=== PATIENT | male | born 1985 | race Caucasian/White ===

== ENCOUNTER 2024-10-08 23:31 | Emergency (ER) | payer SELFPAY ==
[2024-10-08 23:32] VITALS: BP 143/84; PULSE 78; RESP 16; TEMP 36.4; O2SAT 97; BMI 22.5
--- NOTE | 2024-10-08 23:41 | ECG_ITS ---
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 Measurements Intervals [place] Rate: 73 P: 69 LA: 172 QRS: 77 QRSD: 90 T: 62 QT: 334 QTc: 368 Interpretive Statements SINUS RHYTHM No previous ECG available for comparison Electronically Signed On 10-09-2024 14:06:51 CDT by Martha Holland M.D. [email or web address]
--- NOTE | 2024-10-09 00:09 | XRR_ITS ---
PROCEDURE INFORMATION: Exam: XR Chest Exam date and time: 10/09/2024 12:27 AM Age: 39 years old Clinical indication: Pain; Right-sided; Additional info: Chest pain TECHNIQUE: Imaging protocol: Radiologic exam of the chest. Views: 1 view. COMPARISON: No relevant prior studies available. FINDINGS: Lungs: Lungs are clear bilaterally. Pleural spaces: No pleural effusion. No pneumothorax. Heart/Mediastinum: The cardiac silhouette and mediastinal contours are unremarkable. Bones/joints: Unremarkable for age. XR/XR chest 1V portable [id number] IMPRESSION: Negative chest radiograph.
[2024-10-09 01:37] LABS: Hematocrit 44.7 % (37-53); Hemoglobin 15.40 g/dL (11.27-16.99); Mean Corpuscular HGB Conc 34.5 g/dL (30-55); Mean Corpuscular Hemoglobin 30.4 pg (27-33); Mean Corpuscular Volume 88.3 fl (82-101); Nucleated Red Blood Cells % 0 %; Platelet Count 206 10^3/cmm (157-399); Red Blood Count 5.06 10^6/uL (3.85-5.65); White Blood Count 9.22 10^3/uL (3.29-11.43)
[2024-10-09 01:56] LABS: Troponin(5th) Baseline 7 ng/L (0-15)
[2024-10-09 02:08] LABS: Alanine Aminotransferase 18 U/L (0-41); Albumin Level 4.6 g/dL (3.5-5.2); Alkaline Phosphatase 98 U/L (40-130); Anion Gap 14.3 (5-19); Aspartate Amino Transferase 15 U/L (0-40); Blood Urea Nitrogen 19 mg/dL (6-20); Calcium 9.6 mg/dL (8.5-10.5); Carbon Dioxide 27 mmol/L (22-29); Chloride 102 mmol/L (98-107); Creatinine Clr Calc Pharmacy 146.1673; Globulin 2.3 g/dL (1.3-4.6); Glucose 93 mg/dL (65-115); Osmolality Calculated 290 mOsm/kg (285-295); Potassium 4.3 mmol/L (3.5-5.1); Sodium 139 mmol/L (136-145); Total Protein 6.9 g/dL (6.6-8.7)
[2024-10-09 03:19] VITALS: BP 121/75; PULSE 68; RESP 16; O2SAT 96
[2024-10-09 03:22] VITALS: BP 121/75; PULSE 68; O2SAT 96
--- NOTE | 2024-10-09 04:32 | ED_ITS ---
HPI - Chest Pain 2 General: Chief Complaint: Chest Pain Stated Complaint: CP into back Time Seen by Provider: 10/09/24 03:01 History of Present Illness: 39-year-old male with no known cardiac h istory presents with 6 days of intermittent anterior right-sided chest pain rated up to 6/10. Pain starts in the mid-chest, wraps to the mid-back, and may ascend toward the posterior neck. Episodes last 15?20 min to several hours, resolve spontaneously, and lack clear triggers; not predictably exertional and not meal-related. Deep inspiration worsens pain when active. Tonight he vomited en route to the ED; otherwise denies consistent shortness of breath, diaphoresis, or fever. No prior similar episodes. 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 Triage vitals described as normal. EKG normal without ST changes. Labs, including troponin and liver enzymes, unremarkable. Chest X-ray shows no acute process. Pain fully resolved during ED stay. Related Data Allergies Allergy/AdvReac Type Severity Reaction Status Date / Time No Known Allergies Allergy Verified 10/08/24 23:41 Physical Exam 2 Const: COMMON NORMALS: no acute distress, patient oriented x3 and alert HENMT: COMMON NORMALS: normocephalic and atraumatic HEAD & SCALP: n ormocephalic and atraumatic Eye: COMMON NORMALS: Equal, round and reactive pupils present, EOMs intact bilaterally and no scleral icterus PUPIL: Yes Equal, round and reactive pupils present Chest: OTHER: chest pain is not reproducible with palpation or deep inspiration. Resp: COMMON NORMALS: normal respiratory effort and No retractions Cardio: COMMON NORMALS: regular rate, regular rhythm and No murmurs present (Cardio) RATE: regular rate RHYTHM: regular rhythm GI: COMMON NORMALS: Normal to inspection, nondistended, normoactive bowel sounds present, Soft to palpation and non-tender PALPATION: Yes Soft to palpation Neuro: COMMON NORMALS: patient oriented x3 SENSORIUM/ORIENTATION: Yes alert Skin: COMMON NORMALS: no rashes or lesions noted GENERAL SKIN EXAM: no rashes or lesions noted Course 2 Vital Signs: Vital signs: Vital Signs Temperature 97.5 F L 10/08/24 23:32 Pulse Rate 68 10/09/24 03:22 Respiratory Rate 16 10/09/24 03:19 Blood Pressure 121/75 10/09/24 03:22 Pulse Oximetry 96 10/09/24 03:22 Oxygen Delivery Me thod Nasal Cannula 10/08/24 23:32 MDM - Chest Pain Medical Decision Making In summary, patient is a generally well-appearing 39-year-old male seen for atypical chest pain which comes on intermittently without exertion or other specific trigger. Pain lasts for short while from minutes to roughly 1 hour and then spontaneously resolves. EKG is reassuring and troponin is negative and remainder of workup is noncontributory. I do not suspect ACS, PE, pneumonia, or any other emergent process warranting further workup at this time. He will be discharged in stable and improved condition. The patient presents with 6 days of intermittent non-exertional right anterior chest pain radiating to back/neck, currently resolved; associated only with one episode of emesis and without consistent shortness of breath or fever. Vital signs reportedly normal throughout ED stay. Physical examination shows clear lungs, regular heart rhythm, and non-reproducible chest wall pain. Labs: Comprehensive metabolic panel, complete blood count, liver panel all unremarkable. Serial troponin negative. Imaging: EKG normal with no ST changes; portable chest X-ray without acute findings. Low probability acute coronary syndrome given normal EKG and negative troponin; Pulmonary embolism, pneumonia, pneumothorax, gallbladder disease, pericardial effusion, and intra-abdominal causes considered but felt unlikely based on normal vitals, imaging, labs, and atypical pain pattern; remaining concern only for rare ?zebras.? Patient declines CT chest/abdomen. Plan is discharge with reassurance and return precautions; no medications or further testing ordered at this time. Lab Data 10/09/24 01:25 10/09/24 01:25 Radiology Impressions Chest X-Ray 10/09/24 00:09 IMPRESSION: Negative chest radiograph. Laboratory Results WBC 9.22 10^3/uL (3.29-11.43) 10/09/24 01:25 RBC 5.06 10^6/uL (3.85-5.65) 10/09/24 01:25 Hgb 15.40 g/dL (11.27-16.99) 10/09/24 01:25 Hct 44.7 % (37-53) 10/09/24 01:25 MCV 88.3 fl (82-101) 10/09/24 01:25 MCH 30.4 pg (27-33) 10/09/24 01:25 MCHC 34.5 g/dL (30-55) 10/09/24 01:25 RDW 12.1 % (12.1-15.1) 10/09/24 01:25 Plt Count 206 10^3/cmm (157-399) 10/09/24 01:25 MPV 10.4 fL (7.4-10.4) 10/09/24 01:25 Neut % (Auto) 64.9 % 10/09/24 01:25 Lymph % (Auto) 25.9 % 10/09/24 01:25 Clarke % (Auto) 6.7 % 10/09/24 01:25 Eos % (Auto) 1.8 % 10/09/24 01:25 Baso % (Auto) 0.5 % 10/09/24 01:25 Neut # (Auto) 5.97 10^3/uL (1.8-7.7) 10/09/24 01:25 Lymph # (Auto) 2.4 10^3/uL (0.8-4.8) 10/09/24 01:25 Clarke # (Auto) 0.6 10^3/uL (0.2-0.9) 10/09/24 01:25 Eos # (Auto) 0.2 10^3/uL (0.0-0.8) 10/09/24 01:25 Baso # (Auto) 0.1 10^3/uL (0.0-0.1) 10/09/24 01:25 Nucleated RBC % (auto) 0 % 10/09/24:25 Nucleated RBCs # 0.0 /100WBC 10/09/24 01:25 Sodium 139 mmol/L (136-145) 10/09/24 01:25 Potassium 4.3 mmol/L (3.5-5.1) 10/09/24 01:25 Chloride 102 mmol/L (98-107) 10/09/24 01:25 Carbon Dioxide 27 mmol/L (22-29) 10/09/24 01:25 Anion Gap 14.3 (5-19) 10/09/24 01:25 BUN 19 mg/dL (6-20) 10/09/24 01:25 Creatinine 0.8 mg/dL (0.7-1.2) 10/09/24 01:25 GFR Calculation 107.6 mL/min (90-130) 10/09/24 01:25 Glucose 93 mg/dL (65-115) 10/09/24 01:25 Calculated Osmolality 290 mOsm/kg (285-295) 10/09/24 01:25 Calcium 9.6 mg/dL (8.5-10.5) 10/09/24 01:25 Total Bilirubin 0.4 mg/dL (0.15-1.2) 10/09/24 01:25 AST 15 U/L (0-40) 10/09/24 01:25 ALT 18 U/L (0-41) 10/09/24 01:25 Alkaline Phosphatase 98 U/L (40-130) 10/09/24 01:25 Troponin T Baseline 7 ng/L (0-15) 10/09/24 01:25 Total Protein 6.9 g/dL (6.6-8.7) 10/09/24 01:25 Albumin 4.6 g/dL (3.5-5.2) 10/09/24 01:25 Globulin 2.3 g/dL (1.3-4.6) 10/09/24 01:25 All radiology interpretation(s) finalized by discharge EKG Data EKG 1: Interpretation: Time?2336?normal sinus rhythm, rate of 73, no ST segment elevation or depression, no T wave inversions, QTc = 359 Discharge Plan Discharge Patient Disposition: Home Clinical Impression: Atypical chest pain Condition: Stable Discharge Orders: Discharge ED (Routine); Ordered 10/09/24 Ordered By: Rudi De Paz Discharge Diet: Usual diet Discharge Activity: Resume usual activity Patient Instructions: Chest Pain - Noncardiac, Patient Portal & [facility] Instructions Print Language: Vietnamese Coding Level of Care Code 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
== END 2024-10-09 03:23 | disposition home or self-care (01) ==
PROVIDERS: Emergency Provider Student in an Organized Health Care Education/Training Program
DX: R07.89 Other chest pain (principal)
CPT/HCPCS: 36415; 71045; 80053; 84484; 85025; 93005; 99285

== ENCOUNTER 2024-12-09 17:16 | Emergency (ER) | payer SELFPAY ==
[2024-12-09 17:19] VITALS: BP 138/90; PULSE 81; TEMP 36.3; O2SAT 97
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
[2024-12-09] MEDS: tetracaine 0.5% Op Soln 4 mL Btl 1 DROP EYE-LEFT (17:46)
== END 2024-12-09 17:52 | disposition home or self-care (01) ==
PROVIDERS: Emergency Provider Emergency Medicine
DX: S05.02XA Injury of conjunctiva and corneal abrasion without foreign body, left eye, initial encounter (principal); W55.32XA Struck by other hoof stock, initial encounter
CPT/HCPCS: 99283; J9999